=== PATIENT | male | born 2000 | race African-American/Black ===

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

== ENCOUNTER 2021-11-09 09:15 | Emergency (ER) | payer OTHER ==
[~2021-11-09] VITALS: Ht 182.9 cm; Wt 59.0 kg
[~2021-11-09 09:15] MED LIST: IBUP-2028 MT
[2021-11-09] MEDS ORDERED: HYDROCODONE/ACETAMINOPHEN 5/325MG TABLET PO ONE (10:45)
[2021-11-09] MEDS ORDERED: MORPHINE SULFATE 4 MG/ML CPJ (NOT FOR IM USE) IV ONE (11:30)
[2021-11-09] MEDS ORDERED: ONDANSETRON HCL 4MG/2ML INJ IV ONE ×2 (11:30→12:15)
[2021-11-09] MEDS ORDERED: PROPOFOL 200MG/20ML VIAL IV ONE (12:15)
[2021-11-09] MEDS ORDERED: NAPR-1176 MT (15:26)
[2021-11-09 16:50] VITALS: BP 126/83
== END 2021-11-09 17:00 | disposition home or self-care (01) ==
LOC: ER 09:15
DX: S43.005A Unspecified dislocation of left shoulder joint, initial encounter (principal); Z98.890 Other specified postprocedural states; X58.XXXA Exposure to other specified factors, initial encounter; Y93.84 Activity, sleeping; Y92.89 Other specified places as the place of occurrence of the external cause; Y99.8 Other external cause status
CPT/HCPCS: 23650; 73030; 96374; 96376; 99152; 99285; J2270; J2405; J2704; 96375; L3670